=== PATIENT | male | born 1975 | race Caucasian/White ===

== ENCOUNTER → 2021-02-23 01:49 | Outpatient (CLI) | payer OTHER, SELFPAY ==
[2021-02-23 19:54] LABS: SARS-CoV-2 RNA PCR Negative
== END ==
PROVIDERS: PCP Family Medicine; Visit Provider Nurse Practitioner Family
DX: R68.89 Other general symptoms and signs (principal); Z20.822 Contact with and (suspected) exposure to COVID-19
CPT/HCPCS: C9803; U0003; U0005

== ENCOUNTER → 2022-02-24 16:14 | Outpatient (CLI) | payer OTHER, SELFPAY ==
--- NOTE | ~2022-02-24 | XR_ITS ---
EXAMINATION: XR hand RT min 3V, XR finger 3rd RT min 2V DATE: 02/24/2022 16:53 INDICATION: Right hand pain specifically at the third digit TECHNIQUE: 1. Posteroanterior, oblique and lateral views of the right hand were obtained. 2. Dorsal palmar, 2 oblique and lateral views of the right third digit were obtained. COMPARISON: None. FINDINGS: Bone alignment is normal. No fracture. Joint spaces are normal. Mild soft tissue swelling at the prox imal aspect of the right third digit. IMPRESSION: 1. No osseous abnormality. Reviewed, dictated and finalized at location A. IMPRESSION: 1. No osseous abnormality. IMPRESSION: 1. No osseous abnormality.
== END ==
PROVIDERS: PCP Family Medicine; Visit Provider Nurse Practitioner Family
DX: M79.641 Pain in right hand (principal); M79.644 Pain in right finger(s); M79.89 Other specified soft tissue disorders
CPT/HCPCS: 73130; 73140

== ENCOUNTER 2022-09-29 12:21 | Day surgery (SDC) | payer OTHER, SELFPAY ==
[2022-09-16 09:29] VITALS: BMI 27.0
[2022-09-29 12:45] VITALS: BP 136/91; PULSE 59; RESP 16; TEMP 36.2; O2SAT 100
--- NOTE | 2022-09-29 13:03 | WPDANESEPPF ---
Anes - Initial Pre Proc Eval Procedure: Operation Date: 09/29/22 14:00 Proposed Procedures p Screening Colonoscopy - Alonzo Rodriguez MD Date/Time: 09/29/22 13:03 Surgeon: Alonzo Rodriguez MD Pre Op Diagnosis: Neoplasm Screening Patient Data Age: 47 Gender: M Height: 1.75 m Weight: 81.7 kg Last Vital Signs Temp 36.2 C L 09/29/22 12:45 Pulse 59 L 09/29/22 12:45 Resp 16 09/29/22 12:45 BP 136/91 H 09/29/22 12:45 Pulse Ox 100 09/29/22 12:45 O2 Del Method Room Air 09/29/22 12:45 Allergies Allergy/AdvReac Type Severity Reaction Status Date / Time No Known Allergies Allergy Verified 09/29/22 12:48 Home Medications Medication Instructions Recorded Confirmed Type rosuvastatin 20 mg tablet See Rx Instructions .Route 08/19/22 09/29/22 Rx .COMPLEX #30 tabs lisinopril 10 mg tablet 10 mg PO DAILY #90 tabs 09/02/22 09/29/22 Rx sodium,potassium,mag sulfates 17.5 See Rx Instructions PO .COMPLEX 09/15/22 09/29/22 Rx gram-3.13 gram-1.6 gram oral soln #354 mL (Suprep Bowel Prep Kit) Patient hx anesthesia problems: none Family hx anesthesia problems: none Results Review: All pre-operative results and documents have been reviewed as part of the pre-operative evaluation. [facility] Past Medical History Medical History (Updated 09/02/22 @ 09:03 by Abby Young NP) Acute pain of right shoulder Acute sinusitis, unspecified BMI 27.0-27.9,adult BMI 28.0-28.9,adult Dietary counseling and surveillance (05/27/16) Elevated blood pressure reading Essential (primary) hypertension Mixed hyperlipidemia Myalgia Right knee pain Routine physical examination Screening for diabetes mellitus Screening for lipid disorders Screening for prostate cancer Family History Family History Father RLS (restless legs syndrome) Mother Pacemaker Sibling No problems noted. 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 Informed Consent: The patient's anesthetic plan and its attendant risks and benefits were discussed with the patient/family/POA. Questions were solicited and answers provided to the satisfaction of the patient/family/POA.
[2022-09-29] MEDS: LACTATED RINGERS 1,000 ML 150 ML IV CONT (13:11)
--- NOTE | 2022-09-29 13:38 | SUR.PREOP ---
PT UPDATED DR SHUKLA REMAINS AT HOSPITAL. NO TIME FRAME GIVEN.
--- NOTE | 2022-09-29 14:32 | PM.HPGS ---
History of Present Illness History of Present Illness Consent: Risks, benefits, and alternatives have been discussed and questions answered. Patient agrees to proceed with procedure. Chief complaint: Neoplasm Screening Narrative: Kamari Lucero is a 47 year old male Presents for screening colonoscopy. Patient's current weight appetite and bowel movements are normal. Patient denies abdominal pain. Patient has had no bleeding. Family history noncontributory. Review of Systems Review of Systems: Review of systems noncontributory. [facility] Past Medical History Medical History (Updated 09/02/22 @ 09:03 by Abby Young NP) Acute pain of right shoulder Acute sinusitis, unspecified BMI 27.0-27.9,adult BMI 28.0-28.9,adult Dietary counseling and surveillance (05/27/16) Elevated blood pressure reading Essential (primary) hypertension Mixed hyperlipidemia Myalgia Right knee pain Routine physical examination Screening for diabetes mellitus Screening for lipid disorders Screening for prostate cancer Family History Family History Father RLS (restless legs syndrome) Mother Pacemaker Sibling No problems noted. 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 Gender identity (if verbalized by the patient): Male Spiritual care concerns: No Meds Home Medications and Allergies Home Medications Medication Instructions Recorded Confirmed Type rosuvastatin 20 mg tablet See Rx Instructions .Route 08/19/22 09/29/22 Rx .COMPLEX #30 tabs lisinopril 10 mg tablet 10 mg PO DAILY #90 tabs 09/02/22 09/29/22 Rx sodium,potassium,mag sulfates 17.5 See Rx Instructions PO .COMPLEX 09/15/22 09/29/22 Rx gram-3.13 gram-1.6 gram oral soln #354 mL (Suprep Bowel Prep Kit) Allergies Allergy/AdvReac Type Severity Reaction Status Date / Time No Known Allergies Allergy Verified 09/29/22 12:48 Vital Signs Vital Signs - 24 hr 09/29/22 12:45 Temperature 97.2 F L Pulse Rate 59 L Respiratory Rate 16 Blood Pressure 136/91 H Pulse Oximetry 100 Oxygen Delivery Room Air Exam Narrative: Physical exam reveals patient to be alert. Vital signs stable. HEENT exam is unremarkable. Patient anicteric. Lungs are clear to auscultation and percussion. Heart is without murmur or extra sounds. Abdomen bowel sounds are present soft nontender with no organomegaly. Digital external rectal exam normal. Assessment and Plan Assessment and plan (1) Screening for colon cancer: Code(s): Z12.11 - Encounter for screening for malignant neoplasm of colon Status: Acute Assessment and Plan: Patient presents today for screening colonoscopy. he appears be at a average risk for colon polyps per
[2022-09-29 15:48] VITALS: BP 117/80; PULSE 76; RESP 16; O2SAT 95
[2022-09-29 15:58] VITALS: BP 121/88; PULSE 69; RESP 16; O2SAT 100
[2022-09-29 16:08] VITALS: BP 123/90; PULSE 55; RESP 18; O2SAT 100
== END 2022-09-29 16:15 | disposition home or self-care (01) ==
PROVIDERS: PCP Family Medicine; Visit Provider Internal Medicine Gastroenterology
PROC: 0DJD8ZZ Inspection of Lower Intestinal Tract, Via Natural or Artificial Opening Endoscopic (ICD-10-PCS; CPT 45378; principal; 2022-09-29 14:00)
DX: Z12.11 Encounter for screening for malignant neoplasm of colon (principal)
CPT/HCPCS: 45378

== ENCOUNTER → 2023-01-13 07:02 | Outpatient (CLI) | payer OTHER, SELFPAY ==
--- NOTE | ~2023-01-13 | XR_ITS ---
EXAMINATION: XR_[id number]_CR DATE: 01/13/2023 07:15 INDICATION: Localized swelling to left knee. TECHNIQUE: 2 views of left knee standing were obtained. COMPARISON: None. FINDINGS: Bone alignment is normal. No fracture. Joint spaces are normal. There is a small knee joint effusion. IMPRESSION: 1. Small left knee joint effusion. Reviewed, dictated and finalized at location A.
== END ==
PROVIDERS: PCP Family Medicine; Visit Provider Nurse Practitioner Family
DX: M25.462 Effusion, left knee (principal)
CPT/HCPCS: 73560

== ENCOUNTER 2023-08-25 11:49 | Outpatient (CLI) | payer OTHER, SELFPAY ==
--- NOTE | 2023-08-25 11:57 | ECG_ITS ---
Measurements Intervals [place] Rate: 63 P: 9 NE: 161 QRS: 20 QRSD: 94 T: 27 QT: 399 QTc: 411 Interpretive Statements SINUS RHYTHM NORMAL ECG NO PREVIOUS ECG AVAILABLE FOR COMPARISON Electronically Signed On 08-25-2023 12:16:00 [employer] by Orlando Dobbins D.O.
== END 2023-08-25 11:50 | disposition home or self-care (01) ==
LOC: ANHCARD 11:51
PROVIDERS: PCP Family Medicine; Visit Provider Physician Assistant
DX: R07.9 Chest pain, unspecified (principal)
CPT/HCPCS: 93005

== ENCOUNTER 2024-05-14 12:53 | Outpatient (CLI) | payer OTHER, SELFPAY ==
--- NOTE | 2024-05-14 14:00 | NEURO_ITS ---
Impression: # Complains of right hand numbness intermittently. # Normal motor/sensory Nerve Conduction Study. # No Carpal Tunnel Syndrome or ulnar neuropathy. # Normal needle/EMG exam. Nerve Conduction Studies Anti Sensory Summary Table Stim Site NR Peak (ms) P-T Amp (?V) Site1 Site2 Delta-P (ms) Dist (cm) Martin (m/s) Left Median Anti Sensory (2-3nd Digit) Wrist 2.8 68.6 Wrist 2-3nd Digit 2.8 14.0 50 Wrist 2.8 72.2 Wrist 2-3nd Digit 2.8 14.0 50 Right Median Anti Sensory (2-3nd Digit) Wrist 2.7 76.2 Wrist 2-3nd Digit 2.7 14.0 52 Wrist 2.8 88.2 Wrist 2-3nd Digit 2.7 14.0 52 Left Radial Anti Sensory (Base 1st Digit) Wrist 2.1 25.4 Wrist Base 1st Digit 2.1 0.0 Right Radial Anti Sensory (Base 1st Digit) Wrist 1.8 25.1 Wrist Base 1st Digit 1.8 0.0 Left Ulnar Anti Sensory (5th Digit) Wrist 2.2 59.6 Wrist 5th Digit 2.2 14.0 64 Right Ulnar Anti Sensory (5th Digit) Wrist 2.5 58.7 Wrist 5th Digit 2.5 14.0 56 Motor Summary Table Stim Site NR Onset (ms) O-P Amp (mV) Site1 Site2 Delta-0 (ms) Dist (cm) Martin (m/s) Left Median Motor (Abd Poll Brev) Wrist 2.7 4.6 Elbow Wrist 5.0 31.0 62 Elbow 7.7 4.4 Right Median Motor (Abd Poll Brev) Wrist 2.3 8.7 Elbow Wrist 4.9 28.0 57 Elbow 7.2 7.5 Left Ulnar Motor (Abd Dig Minimi) Wrist 2.3 6.4 A Elbow Wrist 5.0 31.0 62 A Elbow 7.3 6.5 Right Ulnar Motor (Abd Dig Minimi) Wrist 2.4 6.9 A Elbow Wrist 5.1 30.0 59 A Elbow 7.5 4.9 F Wave Studies NR F-Lat (ms) L-R F-Lat (ms) Left Median (Mrkrs) (Abd Poll Brev) 26.75 0.66 Right Median (Mrkrs) (Abd Poll Brev) 26.08 0.66 Left Ulnar (Mrkrs) (Abd Dig Min) 27.48 0.38 Right Ulnar (Mrkrs) (Abd Dig Min) 27.10 0.38 EMG Side Muscle Nerve Root Ins Act Fibs Amp Dur Recrt Comment Right 1stDorInt Ulnar C8-T1 Nml Nml Nml Nml Nml Right Ext Indicis Radial (Post Int) C7-8 Nml Nml Nml Nml Nml Right Ext Digitorum Radial (Post Int) C7-8 Nml Nml Nml Nml Nml Right BrachioRad Radial C5-6 Nml Nml Nml Nml Nml Right PronatorTeres Median C6-7 Nml Nml Nml Nml Nml Right Abd Poll Brev Median C8-T1 Nml Nml Nml Nml Nml Right ABD Dig Min Ulnar C8-T1 Nml Nml Nml Nml Nml Left 1stDorInt Ulnar C8-T1 Nml Nml Nml Nml Nml Left Ext Indicis Radial (Post Int) C7-8 Nml Nml Nml Nml Nml Left Ext Digitorum Radial (Post Int) C7-8 Nml Nml Nml Nml Nml Left BrachioRad Radial C5-6 Nml Nml Nml Nml Nml Left PronatorTeres Median C6-7 Nml Nml Nml Nml Nml Left Abd Poll Brev Median C8-T1 Nml Nml Nml Nml Nml Left ABD Dig Min Ulnar C8-T1 Nml Nml Nml Nml Nml MTDD
== END 2024-05-14 12:54 | disposition home or self-care (01) ==
PROVIDERS: PCP Family Medicine; Visit Provider Physician Assistant Medical
DX: R20.0 Anesthesia of skin (principal); R20.2 Paresthesia of skin
CPT/HCPCS: 95886; 95911

== ENCOUNTER 2024-05-20 08:43 | Emergency (ER) | payer OTHER, SELFPAY ==
[2024-05-20 08:50] VITALS: BP 149/91; PULSE 73; RESP 16; TEMP 36.1; O2SAT 98
[2024-05-20 09:09] VITALS: BP 149/91; PULSE 73; RESP 16; TEMP 37.1; O2SAT 98
--- NOTE | 2024-05-20 09:25 | ED.URI ---
HPI - URI/Sore Throat General Chief Complaint: Upper Respiratory Infection Stated Complaint: cough,runny nose,sore throat Time Seen by Provider: 05/20/24 09:25 Source: patient, RN notes reviewed and old records reviewed Mode of arrival: ambulatory Limitations: no limitations History of Present Illness HPI Narrative: 49-year-old male presents to the [facility] with cough, runny nose, sore throat that started Monday, 2 days ago Has taken DayQuil and NyQuil Treatments prior to arrival: cold medicine Related Data Allergies Allergy/AdvReac Type Severity Reaction Status Date / Time No Known Allergies Allergy Verified 02/07/24 15:19 Review of Systems Review of Systems: All systems reviewed & are unremarkable except as noted in HPI and below Constitutional: Constitutional: Reports no additional constitutional complaints ENT: Reports as per HPI, Reports nasal congestion and Reports sore throat Cardiovascular: Cardiovascular: Reports no additional cardiovascular complaints, Denies chest pain and Denies dyspnea Respiratory: Respiratory: Reports as per HPI, Denies chest congestion, Reports cough and Denies dyspnea Gastrointestinal: Gastrointestinal: Reports no additional gastrointestinal complaints, Denies abdominal pain, Denies nausea and Denies vomiting Musculoskeletal: Musculoskeletal: Reports no additional musculoskeletal complaints Integumentary/Breasts: Skin/Breast: Reports system reviewed and no additional complaints, except as docu PMFSH Past Medical History Medical History Acute pain of right shoulder Acute sinusitis, unspecified Apneic episode BMI 27.0-27.9,adult BMI 28.0-28.9,adult BMI 29.0-29.9,adult BMI 31.0-31.9,adult Dietary counseling and surveillance (05/27/16) Elevated blood pressure reading Essential (primary) hypertension Mixed hyperlipidemia Myalgia Right knee pain Routine physical examination Screening for diabetes mellitus Screening for lipid disorders Screening for prostate cancer Surgical History Surgical History H/O colonoscopy Family History Family History Mother Pacemaker Sibling No problems noted. 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 There is no relevant family history pertinent to the patient complaint. Exam Const: General: cooperative, healthy appearing, comfortable, no acute distress, well developed, alert and well nourished Nutritional Appearance: well nourished Orientation/consciousness: patient oriented x3 Limitations: no limitations HENMT: Head: normal to inspection Ears: hearing grossly normal bilaterally, external ears normal, TM's normal bilaterally, EAC's normal, mastoids normal and no periauricular adenopathy Face/Nose/Sinus: Normal external nose present, normal facial exam and face symmetric Face and sinus: normal facial exam and face symmetric Mouth: Yes Normal oral and palatal mucosa present, Yes lip normal and Yes tongue normal Throat: posterior oropharynx normal, tonsils normal, uvula midline, postnasal drainage and no uvular edema Eyes: General: appearance normal, both eyes and all related structures Alignment and Position: alignment normal Periorbital: periorbital findings normal Neck: Neck: normal visual inspection, full ROM, no lymphadenopathy and no meningeal signs Chest: Chest palpation & inspection: normal inspection of the chest Resp: Effort & Inspection: normal respiratory effort and able to speak in complete sentences Auscultation: clear to auscultation bilaterally, no crackles, no rales, no rhonchi and no wheezes Cardio: Rate: regular rate Skin: General skin exam: normal color and no rashes or lesions noted Lesions: no lesions Rashes: no rashes Wounds: no wounds Neuro: General: patient oriented x3, gait normal, tone normal, moves all extremities and no meningeal signs Cognition (Neuro): normal cognition Speech: normal speech Gait exam (Neuro): Normal gait present Extrem: General: normal to inspection, full ROM, capillary refill normal and normal gait Psych: Appearance: grossly normal and well kempt Mental Status: mental status grossly normal Speech and movement: Normal speech and movement present and Clear speech present Affect: normal affect Attitude: cooperative Course Course Level of Care: Express Care Visit Vital Signs Vital signs: Vital Signs Temperature 97.0 F L 05/20/24 08:50 Pulse Rate 73 05/20/24 08:50 Respiratory Rate 16 05/20/24 08:50 Blood Pressure 149/91 H 05/20/24 08:50 Pulse Oximetry 98 05/20/24 08:50 Oxygen Delivery Room Air 05/20/24 08:50 Temperature 98.8 F 05/20/24 09:09 Pulse Rate 73 05/20/24 09:09 Respiratory Rate 16 05/20/24 09:09 Blood Pressure 149/91 H 05/20/24 09:09 Pulse Oximetry 98 05/20/24 09:09 Oxygen Delivery Room Air 05/20/24 09:09 Reviewed MDM - URI/Sore Throat MDM Narrative Medical decision making narrative: Patient sitting comfortably in exam room. Nontoxic, vitals stable. Patient presents with 2 day history of URI symptoms. Patient is strep test is negative. No acute findings noted on exam other than postnasal drainage Patient appropriate for outpatient treatment and follow-up Discharge instructions reviewed with patient, as well as provided in writing per nursing staff. The instructions also include specific and strict return/GO TO THE ER as well as f/u information. All questions have been answered, and the patient deny any further questions with discharge and discharge plan. Some parts of this dictation were generated by voice recognition software and may contain typographical and/or grammatical inaccuracies. Differential Diagnosis Differential diagnosis: Likely upper respiratory infection, otitis media, sinusitis, viral infection, bronchitis and pharyngitis Lab Data Labs: Lab Results 05/20/24 Range/Units 09:20 POC Grp A Strep Screen Negative (Negative) Reviewed Critical Care Time Critical Care Time Critical Care Time: No Discharge Plan Discharge Clinical Impression: PND (post-nasal drip) Upper respiratory infection Qualifiers: URI type: unspecified viral URI Qualified Code(s): J06.9 - Acute upper respiratory infection, unspecified Patient Disposition: Home, Self-Care Condition: Stable Instructions: Antibiotic Form, Upper Respiratory Infection (ED), Postnasal Drip (DC) Additional Instructions: Your rapid strep swab was negative today at [facility]. A throat culture will be sent to the laboratory for further testing. If the test is positive, you will receive a phone call within 48 hours and an appropriate antibiotic will be initiated at that time. Your symptoms are likely due to a viral illness, which is not treated with antibiotics. Typically viral infections last 7-10 days, can linger for couple of weeks. It is very important to treat your symptoms. Plenty of water, Gatorade, Pedialyte, ice pops or Jell-O. -Alternate Tylenol and Motrin per package directions for fever or pain. You can alternate every 4 hours -Antihistamine medication such as Benadryl at night and Zyrtec/Claritin/Atiya during the day can help improve symptoms. -doing daily nasal irrigations can help relieve pressure your sinuses. Things like a Neti pot -Use Flonase twice a day for 5 days then daily to help reduce the inflammation and dry up your sinuses. -You can also use Mucinex. Be sure to drink plenty of water with this medication at least 8 ounces with every dose and it is important to drink 8 to 10 glasses of water per day. Water is a natural decongestant -Eat and drink things that are easy to swallow, like tea or soup, or popsicles. -Oral rinses such as: Salt water gargles and/or may use topical anesthetic (eg. Chloraseptic spray) or lozenges to relieve dryness or throat pain). -Frequent hand washing or hand senior datastage developer is one of the best ways to prevent spread of infection. -Using a vaporizer or humidifier at night will also help thin secretions and help with coughing up phlegm. -Follow up with primary care provider in 7-10 days if condition is not improving - For new or worsening symptoms go directly to the nearest ER Patient Language: Yakut Prescriptions: No Action gabapentin 100 mg capsule 100 mg PO QHS Qty: 30 0RF losartan 50 mg tablet 50 mg PO DAILY Qty: 30 5RF rosuvastatin 20 mg tablet See Rx Instructions .ROUTE .COMPLEX Qty: 90 1RF Dose Instruction: TAKE 1 TABLET BY MOUTH EVERY DAY Rx Instructions: TAKE 1 TABLET BY MOUTH EVERY DAY Follow-up/Referrals: Cale Peralta MD [Primary Care Provider] - 2 Weeks ([facility] care follow up ) Stand Alone Forms: Work/School Release IP Time of Disposition: 09:42
[2024-05-20 10:45] LABS: EDSTREPNEGPOS1 Negative (Negative)
== END 2024-05-20 09:50 | disposition home or self-care (01) ==
PROVIDERS: Emergency Provider Nurse Practitioner; PCP Family Medicine
DX: R09.82 Postnasal drip (principal); J06.9 Acute upper respiratory infection, unspecified; I10 Essential (primary) hypertension; E78.2 Mixed hyperlipidemia; Z87.891 Personal history of nicotine dependence
CPT/HCPCS: 87081; 87880; 99213; G0463

== ENCOUNTER 2024-12-08 10:39 | Emergency (ER) | payer OTHER, SELFPAY ==
--- NOTE | 2024-12-08 10:42 | ED_ITS ---
HPI - General Adult General Chief complaint: Skin/Abscess/Foreign Body Stated complaint: bumps on feet and hands Time Seen by Provider: 12/08/24 10:50 Source: patient, RN notes reviewed and old records reviewed Mode of arrival: ambulatory Limitations: no limitations History of Present Illness HPI narrative: 49-year-old male presents to the [facility] with concerns for a rash to the bilateral feet since Monday. Also has some to the abdomen, hands, forearms and legs. Patient reports the worst part is the feet. Patient states that he has concern for ?sea lice? or sand fleas. Recently in [place]. Had been in the water. Treatments prior to arrival: other (OTC topicals) Related Data Allergies Allergy/AdvReac Type Severity Reaction Status Date / Time No Known Allergies Allergy Verified 12/08/24 10:51 Review of Systems Review of Systems: All systems reviewed & are unremarkable except as noted in HPI and below Constitutional: Constitutional: Reports no additional constitutional com plaints ENT: Reports system reviewed and no additional complaints, except as documented Cardiovascular: Cardiovascular: Reports no additional cardiovascular complaints, Denies chest pain and Denies dyspnea Respiratory: Respiratory: Reports no additional respiratory complaints, Denies chest congestion, Denies cough and Denies dyspnea Musculoskeletal: Musculoskeletal: Reports no additional musculoskeletal c omplaints Integumentary/Breasts: Skin/Breast: Reports as per HPI PMFSH Past Medical History Medical History Vasectomy evaluation BMI 31.0-31.9,adult Apneic episode BMI 29.0-29.9,adult BMI 28.0-28.9,adult Acute pain of right shoulder Acute sinusitis, unspecified Dietary counseling and surveillance (05/27/16) Elevated blood pressure reading Mixed hyperlipidemia Myalgia Routine physical examination Screening for diabetes mellitus Essential (primary) hypertension Screening for prostate cancer Screening for lipid disorders Right knee pain BMI 27.0-27.9,adult Surgical History Surgical History H/O colonoscopy Family History Family History Mother Pacemaker Sibling No problems noted. Social History Social History (Reviewed 12/08/24 @ 19:51 by MOLINA Haney Smoking status: Former smoker Tobacco type: cigarettes Second hand tobacco smoke exposure: Yes Alcohol intake: current Substance use: never Substance use type: does not use Do You Feel Safe in your Home?: Yes Lack of Transportation: No Lack of Food: Never True Current Housing: I Have Housing Concerned About Future Housing: No Difficulty Paying Gas/Electric Bills: No Difficulty Paying for Meds: No Currently Unemployed: No Education: Bachelor's Degree Difficulty w/ Childcare or Family Care: No Living arrangements: with family Occupation/Education: occupation 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 There is no relevant family history pertinent to the patient complaint. Exam Const: General: cooperative, healthy appearing, comfortable, no acute distr ess, well developed, alert and well nourished Nutritional Appearance: well nourished Orientation/consciousness: patient oriented x3 Limitations: no limitations HENMT: Head: normal to inspection Eyes: General: appearance normal, both eyes and all related structures Alignment and Position: alignment normal Neck: Neck: normal visual inspection, full ROM, no lymphadenopathy and no meningeal signs Chest: Chest palpation & inspection: normal inspection of the chest Resp: Effort & Inspection: normal respiratory effort and able to speak in complete sentences Cardio: Rate: regular rate Skin: General skin exam: normal color and no rashes or lesions noted Rashes: rashes noted urticaria bilateral Other: Multiple Small reddened areas less than 0.5 cm covering feet, some on legs, some on arms and torso. No vesicular areas, no cellulitic changes. Neuro: General: patient oriented x3, gait normal, moves all extremities and no meningeal signs Cognition (Neuro): normal cognition Speech: normal speech Gait exam (Neuro): Normal gait present Extrem: General: normal to inspection, full ROM, capillary refill normal and normal gait Psych: Appearance: grossly normal and well kempt Mental Status: mental status grossly normal Speech and movement: Normal speech and movement present and Clear speech present Affect: normal affect Attitude: cooperative Course Course Level of Care: Express Care Visit Vital Signs Vital signs: Vital Signs Temperature 97.2 F L 12/08/24 10:52 Pulse Rate 77 12/08/24 10:52 Respiratory Rate 16 12/08/24 10:52 Blood Pressure 146/100 H 12/08/24 10:52 Pulse Oximetry 98 12/08/24 10:52 Oxygen Delivery Room Air 12/08/24 10:52 Temperature 97.2 F L 12/08/24 10:52 Pulse Rate 77 12/08/24 10:52 Respiratory Rate 16 12/08/24 10:52 Blood Pressure 146/100 H 12/08/24 10:52 Pulse Oximetry 98 12/08/24 10:52 Oxygen Delivery Room Air 12/08/24 10:52 Reviewed Medical Decision Making MDM Narrative Medical decision making narrative: Patient sitting comfortably in exam room. Nontoxic, vitals stable. Patient in no acute distress Patient presents with a red rash most likely mites or lice bites. Patient appropriate for outpatient treatment with close follow-up Discharge instructions reviewed with patient, as well as provided in writing per nursing staff. The instructions also include specific and strict return/GO TO THE ER as well as f/u information. All questions have been answered, and the patient deny any further questions with discharge and discharge plan. Some parts of this dictation were generated by voice recognition software and may contain typographical and/or grammatical inaccuracies. Differential Diagnosis Differential Diagnosis: Mites, lice, sugars Medical Records Medical records reviewed: Yes I reviewed the external patient's medical records. Vital Signs Vital Signs: Vital Signs Temperature 97.2 F L 12/08/24 10:52 Pulse Rate 77 12/08/24 10:52 Respiratory Rate 16 12/08/24 10:52 Blood Pressure 146/100 H 12/08/24 10:52 Pulse Oximetry 98 12/08/24 10:52 Oxygen Delivery Room Air 12/08/24 10:52 Temperature 97.2 F L 12/08/24 10:52 Pulse Rate 77 12/08/24 10:52 Respiratory Rate 16 12/08/24 10:52 Blood Pressure 146/100 H 12/08/24 10:52 Pulse Oximetry 98 12/08/24 10:52 Oxygen Delivery Room Air 12/08/24 10:52 Reviewed Lab Data Lab results reviewed: Yes I reviewed the patient's lab results. Labs: Reviewed Critical Care Time Critical Care Time Critical Care Time: No Discharge Plan Discharge Clinical Impression: Insect bite Patient Disposition: Home Condition: Stable Instructions: Antibiotic Form, Chigger Bite (ED) Additional Instructions: The itching and the bites can last up to 2 weeks * rubbing alcohol or diluted vinegar to neutralize any remaining toxins * an ice pack to ease any pain/itching * Take Zyrtec daily * apply hydrocortisone 3 times a day, * take Pepcid daily * Take Benadryl 25-50 mg every 8 hours * Taking a cool bath with Epson salts * Hot showers will make symptoms worse Patient Language: Tajik Prescriptions: No Action losartan 50 mg tablet 50 mg PO DAILY Qty: 30 5RF rosuvastatin 20 mg tablet See Rx Instructions .ROUTE .COMPLEX Qty: 90 1RF Dose Instruction: TAKE 1 TABLET BY MOUTH EVERY DAY Rx Instructions: TAKE 1 TABLET BY MOUTH EVERY DAY cholecalciferol (vitamin D3) 125 mcg (5,000 unit) capsule 125 mcg PO DAILY Qty: 90 0RF Follow-up/Referrals: Cale Peralta MD [Primary Care Provider] - 2 Weeks ([facility] care follow up blood pressure check 148/100) Time of Disposition: 11:02
[2024-12-08 10:52] VITALS: BP 146/100; PULSE 77; RESP 16; TEMP 36.2; O2SAT 98
== END 2024-12-08 11:08 | disposition home or self-care (01) ==
PROVIDERS: Emergency Provider Nurse Practitioner; PCP Family Medicine
DX: S90.862A Insect bite (nonvenomous), left foot, initial encounter (principal); S90.861A Insect bite (nonvenomous), right foot, initial encounter; S80.862A Insect bite (nonvenomous), left lower leg, initial encounter; S80.861A Insect bite (nonvenomous), right lower leg, initial encounter; S40.862A Insect bite (nonvenomous) of left upper arm, initial encounter; S40.861A Insect bite (nonvenomous) of right upper arm, initial encounter; S20.96XA Insect bite (nonvenomous) of unspecified parts of thorax, initial encounter; W57.XXXA Bitten or stung by nonvenomous insect and other nonvenomous arthropods, initial encounter; E78.2 Mixed hyperlipidemia; I10 Essential (primary) hypertension; Z87.891 Personal history of nicotine dependence
CPT/HCPCS: 99211; G0463